=== PATIENT | female | born 1980 | race Caucasian/White ===

== ENCOUNTER 2020-07-10 15:13 | Emergency (ER) | payer MEDICARE ==
[~2020-07-10] VITALS: Ht 157.5 cm; Wt 99.5 kg
[2020-07-10] MEDS ORDERED: ALPRAZolam 0.25 MG TABLET PO ONE (16:45)
[2020-07-10 17:13] VITALS: BP 132/65
[2020-07-10] MEDS ORDERED: LORA-254 PO (18:30)
--- NOTE | 2020-07-10 18:30 | PHYS DOC ---
Past History Past Medical History: Bipolar (CAROLINA CARPENTER APRN) Past Surgical History: No Surgical History (CAROLINA CARPENTER APRN) Alcohol Use: None (CAROLINA CARPENTER APRN) Adult General Chief Complaint Chief Complaint: ANXIETY/PANIC ATTACK [facility] HPI Patient is a 39 year old female who presents with with complaints of an acute onset of anxiety and panic attacks, patient states that she takes Latuda for bipolar manic depression, patient states that she occasionally has panic attacks and anxiety, also states she has not had one in some time. Patient states that 1/2 mg of Xanax usually helps her. Patient states she is not sure what triggered this panic attack, stating that its been going on for the last several hours prior to arrival. Patient denies any other symptoms, pains, or discomforts. Patient denies any COVID-19 virus symptoms and does not wish to be tested for the COVID-19 virus today. (CAROLINA CARPENTER APRN) Review of Systems Review of Systems Constitutional: Denies fever or chills Eyes: Denies change in visual acuity, redness, or eye pain HENT: Denies nasal congestion or sore throat Respiratory: Denies cough or shortness of breath Cardiovascular: No additional information not addressed in HPI GI: Denies abdominal pain, nausea, vomiting, bloody stools or diarrhea : Denies dysuria or hematuria Musculoskeletal: Denies back pain or joint pain Integument: Denies rash or skin lesions Neurologic: Denies headache, focal weakness or sensory change Psychiatric: Patient complains of an acute onset of anxiety and panic attack, denies homicidal or suicidal ideation. All other systems were reviewed and found to be within normal limits, except as documented in this note. (CAROLINA CARPENTER APRN) Current Medications Current Medications Patient states she takes Latuda for bipolar manic depression. Current Medications Medications (Trade) Dose Ordered Sig/Aditya Start Time Stop Time Status Last Admin Dose Admin Alprazolam (Xanax) 0.5 mg 1X ONCE 07/10/20 16:45 07/10/20 16:46 DC 07/10/20 17:10 0.5 MG (CAROLINA CARPENTER APRN) Allergies Allergies Allergies Coded Allergies Type Severity Reaction Last Updated Verified Penicillins Allergy Unknown 07/10/20 Yes (CAROLINA CARPENTER APRN) Physical Exam Physical Exam Constitutional: Well developed, well nourished, patient rocking back and forth in chair during examination, non-toxic appearance. Patient is legally deaf, signed manager web offered, patient stated she would rather just right down her complaints and use pen and paper to converse. HENT: Normocephalic, atraumatic, bilateral external ears normal, oropharynx moist, no oral exudates, nose normal. Eyes: PERRLA, EOMI, conjunctiva normal, no discharge. Neck: Normal range of motion, no tenderness, supple, no stridor. Cardiovascular:Heart rate regular rhythm, no murmur Lungs & Thorax: Bilateral breath sounds clear to auscultation Abdomen: Bowel sounds normal, soft, no tenderness, no masses, no pulsatile masses. Skin: Warm, dry, no erythema, no rash. Back: No tenderness, no CVA tenderness. Extremities: No tenderness, no cyanosis, no clubbing, ROM intact, no edema. Neurologic: Alert and oriented X 3, normal motor function, normal sensory function, no focal deficits noted. Psychologic: Affect up patient presents anxious, judgement normal, mood normal. Patient is cooperative, no panic attack appreciated. (CAROLINA CARPENTER APRN) Current Patient Data Vital Signs Vital Signs Date Time Temp Pulse Resp B/P (MAP) Pulse Ox O2 Delivery O2 Flow Rate FiO2 07/10/20 17:13 96 18 132/65 (87) 96 Room Air 07/10/20 15:34 98.4 (CAROLINA CARPENTER APRN) EKG EKG [] (CAROLINA CARPENTER APRN) Radiology/Procedures Radiology/Procedures [] (CAROLINA CARPENTER APRN) Heart Score Risk Factors: Risk Factors: DM, Current or recent (<one month) smoker, HTN, HLP, family history of CAD, obesity. Risk Scores: Risk Factors: DM, Current or recent (<one month) smoker, HTN, HLP, family history of CAD, obesity. (CAROLINA CARPENTER APRN) Course & Med Decision Making Course & Med Decision Making Pertinent Labs and Imaging studies reviewed. (See chart for details) 39-year-old female presents emergency department complaining of an acute panic attack, patient states that she takes Latuda for bipolar manic depression, patient states that she does not know what triggered this attack and has not had one in some time. Patient is legally deaf, patient preferred to not use a sign manager web and wished to use pen and paper to converse for examination. Patient's presentation was mild for panic and anxiety, patient did not have a rapid heart rate, patient did not have tachypnea, patient did not complain of chest pain or shortness of breath. Patient was however rocking back and forth in her chair during examination, and making incomprehensible noises. Patient was given 1/2 mg of Xanax p.o., approximately 45 minutes after this medication was given patient's reexamination showed patient improvement, patient was calm and cooperative, no longer exhibiting signs of panic or anxiety. Advised patient that I would not prescribe Xanax at home, patient states that she does have a appointment to see her psychiatrist on Thursday, patient will be given five 1 mg Ativan's for acute panic attacks discussed with patient this should last her until she sees her psychiatrist this coming Thursday. Patient gave verbal understanding of findings, discharge home instructions, prescription instructions, patient had no further questions or concerns, patient discharged home without incident. Patient's diagnosis of acute panic attack versus anxiety. (CAROLINA CARPENTER APRN) Dragon Disclaimer Dragon Disclaimer This electronic medical record was generated, in whole or in part, using a voice recognition dictation system. (CAROLINA CARPENTER APRN) Attending Co-Sign The patient was seen and interviewed as well as examined at the bedside. The chart was reviewed. The case was discussed. Agree with the plan of care. (BASIM QUINTERO DO) Departure Departure: Impression: Primary Impression: Anxiety attack Additional Impression: Bipolar affective disorder Disposition: 01 DC HOME SELF CARE/HOMELESS Condition: IMPROVED Referrals: CAROLINA CARPENTER APRN (PCP) Patient Instructions: Anxiety and Panic Attacks Additional Instructions: Take medications as prescribed, keep your appointment with your doctor this Thursday, return to the emergency department for worsening symptoms, or other concerns. Scripts Lorazepam (ATIVAN) 1 Mg Tablet 1 MG PO BID for ANXIETY ATTACK, #5 TAB Prov: CAROLINA CARPENTER APRN 07/10/20 Problem Qualifiers Additional Impression: Bipolar affective disorder Active/Remission status: currently active Current bipolar episode type: mixed Current episode severity: moderate Qualified Codes: F31.62 - Bipolar disorder, current episode mixed, moderate CAROLINA CARPENTER APRN Jul 10, 2020 18:30 BASIM QUINTERO DO Jul 11, 2020 05:46
== END 2020-07-10 18:43 | disposition home or self-care (01) ==
LOC: ER 15:13
DX: F31.62 Bipolar disorder, current episode mixed, moderate (principal); F41.9 Anxiety disorder, unspecified
CPT/HCPCS: 99283

== ENCOUNTER 2020-07-20 18:35 | Emergency (ER) | payer MEDICARE, MEDICAID ==
[~2020-07-20] VITALS: Ht 157.5 cm; Wt 103.0 kg
[~2020-07-20 18:35] MED LIST: LORA-254 PO
[2020-07-20 19:05] VITALS: BP 124/89
[2020-07-20] MEDS ORDERED: clonazePAM 1 MG TABLET PO PRN (19:30)
[2020-07-20] MEDS ORDERED: DIPH50CA PO (19:33)
[2020-07-20] MEDS ORDERED: CLON1TAB PO (19:33)
--- NOTE | 2020-07-20 19:33 | PHYS DOC ---
Past History Past Medical History: Bipolar Past Surgical History: No Surgical History Alcohol Use: None General Adult EDM: Chief Complaint: MANIC BEHAVIOR HPI: HPI: Patient is a 39-year-old female coming in for anxiety and panic symptoms. Has a history bipolar disorder is taking Latuda and has been for a long time. Was given Ativan recently but she states is making her anxiety worse. Patient has had numerous stressors recently. She states that the Ativan works for a little bit but then makes her anxiety come back worse. Has an appoint with her psychiatrist but cannot go for another 10 days. Has not been sleeping. Review of Systems: Review of Systems: Constitutional: Denies fever or chills Eyes: Denies change in visual acuity HENT: Denies nasal congestion or sore throat Respiratory: Denies cough or shortness of breath Cardiovascular: Denies chest pain or edema GI: Denies abdominal pain, nausea, vomiting, bloody stools or diarrhea : Denies dysuria Musculoskeletal: Denies back pain or joint pain Integument: Denies rash Neurologic: Denies headache, focal weakness or sensory changes Endocrine: Denies polyuria or polydipsia Lymphatic: Denies swollen glands Psychiatric: Anxiety difficulties with sleep Allergies: Allergies: Allergies Coded Allergies Type Severity Reaction Last Updated Verified Penicillins Allergy Unknown 07/20/20 Yes Physical Exam: PE: Constitutional: Well developed, well nourished, no acute distress, non-toxic appearance. [] HENT: Normocephalic, atraumatic, bilateral external ears normal, oropharynx moist, no oral exudates, nose normal. [] Eyes: PERRLA, EOMI, conjunctiva normal, no discharge. [] Neck: Normal range of motion, no tenderness, supple, no stridor. [] Cardiovascular:Heart rate regular rhythm, no murmur [] Lungs & Thorax: Bilateral breath sounds clear to auscultation [] Abdomen: Bowel sounds normal, soft, no tenderness, no masses, no pulsatile masses. [] Skin: Warm, dry, no erythema, no rash. [] Back: No tenderness, no CVA tenderness. [] Extremities: No tenderness, no cyanosis, no clubbing, ROM intact, no edema. [] Neurologic: Alert and oriented X 3, normal motor function, normal sensory function, no focal deficits noted. [] Psychologic: Affect normal, judgement normal, mood normal. [] EKG: EKG: [] Radiology/Procedures: Radiology/Procedures: [] Heart Score: Risk Factors: Risk Factors: DM, Current or recent (<one month) smoker, HTN, HLP, family history of CAD, obesity. Risk Scores: Score 0 - 3: 2.5% MACE over next 6 weeks - Discharge Home Score 4 - 6: 20.3% MACE over next 6 weeks - Admit for Clinical Observation Score 7 - 10: 72.7% MACE over next 6 weeks - Early Invasive Strategies Course & Med Decision Making: Course & Med Decision Making Discussed with patient and spouse will change to a longer acting benzo diazepam and that she can use Benadryl for sleep. [] Dragon Disclaimer: Dragon Disclaimer: This electronic medical record was generated, in whole or in part, using a voice recognition dictation system. Departure Departure: Impression: Primary Impression: Anxiety Disposition: 01 DC HOME SELF CARE/HOMELESS Condition: STABLE Referrals: FRANCIA VARELA (PCP) Patient Instructions: Anxiety and Panic Attacks, [id number] Scripts Diphenhydramine Hcl (DIPHENHYDRAMINE HCL) 50 Mg Capsule 1 CAP PO QHS for sleep for 30 Days, #30 CAP 1 Refill Prov: ALEXX BOWER MD 07/20/20 Clonazepam (KLONOPIN) 1 Mg Tablet 1 TAB PO TID PRN for ANXIETY / AGITATION for 14 Days, #42 TAB 1 Refill Prov: ALEXX BOWER MD 07/20/20 ALEXX BOWER MD Jul 20, 2020 19:33
[2020-07-20] MEDS ORDERED: clonazePAM 1 MG TABLET ONE (19:37)
== END 2020-07-20 19:48 | disposition home or self-care (01) ==
LOC: ER 18:35
DX: F41.9 Anxiety disorder, unspecified (principal); F31.9 Bipolar disorder, unspecified; Z88.0 Allergy status to penicillin
CPT/HCPCS: 99283

== ENCOUNTER 2021-07-20 13:06 | Emergency (ER) | payer MEDICARE, MEDICAID ==
[~2021-07-20] VITALS: Ht 157.5 cm; Wt 103.0 kg
[~2021-07-20 13:06] MED LIST changes: +CLON1TAB PO; +DIPH50CA16 PO
--- NOTE | 2021-07-20 13:24 | PHYS DOC ---
Past History Past Medical History: Bipolar Past Surgical History: Other Additional Past Surgical Histo: cochlear implant Alcohol Use: None General Adult EDM: Chief Complaint: ASTHMA HPI: HPI: Patient is a 40-year-old female who presents to the emergency department for an acute asthma exacerbation that started 2 days ago. Patient reports that she became increasingly short of breath like her asthma was worsening when the weather changed. Patient reports that she does not have any inhalers at home. No treatment prior to arrival. Patient is vaccinated for COVID-19. Her vital signs are stable. She is in no acute distress. She denies chest pain, cough, fever, nausea, vomiting. Review of Systems: Review of Systems: Constitutional: See HPI Respiratory: See HPI Cardiovascular: See HPI GI: See HPI Allergies: Allergies: Allergies Coded Allergies Type Severity Reaction Last Updated Verified Penicillins Allergy Unknown 07/20/20 Yes Physical Exam: PE: Constitutional: Well developed, well nourished, no acute distress, non-toxic appearance. [] HENT: Normocephalic, atraumatic, bilateral external ears normal, deaf, oropharynx moist, no oral exudates, nose normal. [] Eyes: PERRL, EOMI, conjunctiva normal, no discharge. [] Neck: Normal range of motion, no tenderness, supple, no stridor. [] Cardiovascular:Heart rate regular rhythm, no murmur [] Lungs & Thorax: Bilateral breath sounds clear to auscultation [] Abdomen: Soft and flat Skin: Warm, dry, no erythema, no rash. [] Back: Normal range of motion Extremities: No tenderness, no cyanosis, no clubbing, ROM intact, no edema. [] Neurologic: Alert and oriented X 3, normal motor function, normal sensory function, no focal deficits noted. [] Psychologic: Affect normal, judgement normal, mood normal. [] EKG: EKG: [] Radiology/Procedures: Radiology/Procedures: []PROCEDURE: PORTABLE CHEST 1V EXAM: Chest, single view. HISTORY: Shortness of air. COMPARISON: None. FINDINGS: A frontal view of the chest is obtained. There is no infiltrate, pleural effusion or pneumothorax. The heart is normal in size. IMPRESSION: No acute pulmonary finding. Electronically signed by: Priyanka Ma MD (07/20/2021 1:49 PM) [id number] DICTATED AND SIGNED BY: PRIYANKA MA MD DATE: 07/20/21 1348 CC: BRIAN SPRING DATA CONSULTANT; FRANCIA VARELA ~MTH0 0 Heart Score: C/O Chest Pain: No Risk Factors: Risk Factors: DM, Current or recent (<one month) smoker, HTN, HLP, family history of CAD, obesity. Risk Scores: Score 0 - 3: 2.5% MACE over next 6 weeks - Discharge Home Score 4 - 6: 20.3% MACE over next 6 weeks - Admit for Clinical Observation Score 7 - 10: 72.7% MACE over next 6 weeks - Early Invasive Strategies Course & Med Decision Making: Course & Med Decision Making Pertinent Labs and Imaging studies reviewed. (See chart for details) [] Patient presents to the emergency department for an acute asthma exacerbation. Patient is in no acute distress, nonlabored breathing and her vital signs are stable. Patient received a chest x-ray in the emergency department that showed no acute findings. She was treated with a DuoNeb brendan atment in the emergency department. She was offered steroids but refused stating that it triggers her bipolar. Patient reports improvement in her symptoms following the breathing treatment. Patient be discharged home with albuterol inhaler and advised to follow-up with her primary care provider. Zeke Disclaimer: Zeke Disclaimer: This electronic medical record was generated, in whole or in part, using a voice recognition dictation system. Departure Departure: Impression: Primary Impression: Asthma exacerbation Qualified Codes: J45.901 - Unspecified asthma with (acute) exacerbation Disposition: HOME / SELF CARE / HOMELESS Condition: GOOD Referrals: FRANCIA VARELA (PCP) Patient Instructions: Asthma Prevention-Brief, Asthma, Adult Additional Instructions: You were seen in the emergency department for an asthma exacerbation. Your chest x-ray showed no acute findings. You received a breathing treatment in the emergency departmen. You're being discharged home with an albuterol inhaler, please use this as directed. You are offered prednisone but stated that you couldn't take it because it triggers her bipolar disorder. Please follow-up with your primary care provider on Thursday regarding your emergency department visit. Please return to the emergency department if you develop worsening of your shortness of breath, chest pain, high fevers refractory to treatment, intractable nausea or vomiting. Scripts Albuterol Sulfate (PROAIR HFA INHALER) 8.5 Gm Hfa.aer.ad 2 PUFF IH PRN Q4-6HRS PRN for wheezing for 21 Days, #1 INHALER 0 Refills as needed for wheezing Prov: BRIAN SPRING APRN 07/20/21 BRIAN SPRING APRN Jul 20, 2021 13:24
[2021-07-20] MEDS ORDERED: predniSONE 20 MG TABLET PO ONE (13:30)
[2021-07-20] MEDS ORDERED: IPRATRPIUM/ALBUTEROL 0.5/2.5MG 3 ML NEBU. NEB ONE (13:30)
--- NOTE | 2021-07-20 13:51 | RAD ---
EXAM: Chest, single view. HISTORY: Shortness of air. COMPARISON: None. FINDINGS: A frontal view of the chest is obtained. There is no infiltrate, pleural effusion or pneumo thorax. The heart is normal in size. IMPRESSION: No acute pulmonary finding. Electronically signed by: Priyanka Ma MD (07/20/2021 1:49 PM) [id number]
[2021-07-20] MEDS ORDERED: ALBU2.5V8 IH (14:06)
[2021-07-20 14:25] VITALS: BP 131/72
== END 2021-07-20 14:30 | disposition home or self-care (01) ==
LOC: ER 13:06
DX: J45.901 Unspecified asthma with (acute) exacerbation (principal); Z88.0 Allergy status to penicillin
CPT/HCPCS: 71045; 81025; 94640; 99283-25

== ENCOUNTER 2022-01-15 02:57 | Emergency (ER) | payer MEDICARE, MEDICAID ==
[~2022-01-15] VITALS: Ht 157.5 cm; Wt 100.2 kg
[~2022-01-15 02:57] MED LIST changes: +ALBU2.5V8 IH
--- NOTE | 2022-01-15 03:34 | PHYS DOC ---
Past History Past Medical History: Bipolar Additional Past Medical Histor: hearing impaired Past Surgical History: No Surgical History Additional Past Surgical Histo: cochlear implant Smoking: Cigarettes, Quit Less Than 1 Year Alcohol Use: None General Adult EDM: Chief Complaint: SORE THROAT HPI: HPI: "-( Sign Language with Boy Friend)" " Coughing, now sore throat" Patient is a 41 year old female who presents with above hx and complaints recent complaints of fever and cough. Patient tonight developed a very sore throat. Patient patient had a history of frequent upper respiratory infections and bronchitis. Patient recently quit smoking in November. Patient denies any recent travel or specific ill contacts. Has had COVID vaccination x4. Has had flu vaccination in May. No history of immunosuppression. Patient did try a drink of hot tea and honey with no relief of her pain. Patient also did take ibuprofen at midnight with no relief of her pain or cough. Patient declines any meds with narcotics and because she has to do a urine test in the morning. Patient does have a pt. follow up with Dr. Rosado in the morning. Patient has hearing deficits but has a right-sided cochlear implant. Patient gives an allergy to penicillin. Review of Systems: Review of Systems: Constitutional: Subjective complaints of fever Eyes: Denies change in visual acuity HENT: Complains of severe sore throat Respiratory: Complains of a nonproductive cough Cardiovascular: Denies chest pain or edema GI: Denies abdominal pain, nausea, vomiting, bloody stools or diarrhea : Denies dysuria Musculoskeletal: Denies back pain or joint pain Integument: Denies rash Neurologic: Denies headache, focal weakness or sensory changes Endocrine: Denies polyuria or polydipsia Lymphatic: Denies swollen glands Psychiatric: Denies depression or anxiety Family History: Family History: Noncontributory to presentation Current Medications: Current Meds: See nursing for home meds Allergies: Allergies: Allergies Coded Allergies Type Severity Reaction Last Updated Verified Penicillins Allergy Unknown 07/20/20 Yes Physical Exam: PE: Constitutional: Reports acute distress, non-toxic appearance. [] HENT: Normocephalic, atraumatic, bilateral external ears normal, oropharynx moist, injected pharynx with postnasal drip, no oral exudates, nose swollen turbinates clear rhinorrhea.. Scar right side of head. TM on right slightly injected. Eyes: PERRLA, EOMI, conjunctiva normal, no discharge. [] Neck: Normal range of motion, no tenderness, supple, no stridor. [] Cardiovascular:Heart tachycardia rate regular rhythm, no murmur [] Lungs & Thorax: Bilateral breath sounds equal apex with scattered wheezes on auscultation [] Abdomen: Bowel sounds normal, soft, no tenderness, no masses, no pulsatile masses. Obese Skin: Warm, dry, no erythema, no rash. Tattoos Back: No tenderness, no CVA tenderness. [] Extremities: No tenderness, no cyanosis, no clubbing, ROM intact, no edema. No cording appreciated Neurologic: Alert and oriented X 3, moves all extremities on request, does have deafness,, no new focal deficits noted. [] Psychologic: Affect anxious , judgement normal, mood normal. [] Current Patient Data: Vital Signs: Vital Signs Date Time Temp Pulse Resp B/P (MAP) Pulse Ox O2 Delivery O2 Flow Rate FiO2 01/15/22 03:23 98.1 16 113/84 (94) 100 EKG: EKG: [] Radiology/Procedures: Radiology/Procedures: [] Heart Score: C/O Chest Pain: No Risk Factors: Risk Factors: DM, Current or recent (<one month) smoker, HTN, HLP, family history of CAD, obesity. Risk Scores: Score 0 - 3: 2.5% MACE over next 6 weeks - Discharge Home Score 4 - 6: 20.3% MACE over next 6 weeks - Admit for Clinical Observation Score 7 - 10: 72.7% MACE over next 6 weeks - Early Invasive Strategies Course & Med Decision Making: Course & Med Decision Making Pertinent Labs and Imaging studies reviewed. (See chart for details) Patient gargle with Listerine at least 4 times a day and as needed. Take Tylenol and ibuprofen for discomfort. Benadryl liquid 25 to 50 mg up to 4 times a day may be helpful for sore throat. Patient use MDI 2 puffs 4 times a day. Patient keep follow-up appointment with Dr. Rosado. Impression: 1. Pharyngitis 2. Bronchitis 3. Deafness/ hearing impaired [] Zeke Disclaimer: Zeke Disclaimer: This electronic medical record was generated, in whole or in part, using a voice recognition dictation system. Departure Departure: Referrals: ONEL ROSADO (PCP) Zeke Disclaimer This chart was dictated in whole or in part using Voice Recognition software in a busy, high-work load, and often noisy Emergency Department environment. It may contain unintended and wholly unrecognized errors or omissions. Hermilaon Disclaimer This chart was dictated in whole or in part using Voice Recognition software in a busy, high-work load, and often noisy Emergency Department environment. It may contain unintended and wholly unrecognized errors or omissions. HI CHONG MD January 15, 2022 03:34
[2022-01-15] MEDS ORDERED: oxyCODONE/APAP 5/325 1 TAB TABLET PO ONE (03:45)
[2022-01-15] MEDS ORDERED: predniSONE 10 MG TABLET. PO ONE (04:00)
[2022-01-15] MEDS ORDERED: ACETAMINOPHEN 500 MG TABLET PO ONE (04:00)
[2022-01-15] MEDS ORDERED: ALBUTEROL SULFATE 8GM INHALER. INH ONE (04:00)
[2022-01-15] MEDS ORDERED: diphenhydrAMINE HCL 25 MG CAPSULE PO ONE (04:00)
[2022-01-15 04:37] LABS: INFLUENZA A PATIENT NEGATIVE (NEGATIVE); INFLUENZA B PATIENT NEGATIVE (NEGATIVE)
[2022-01-15 04:47] VITALS: BP 107/59
== END 2022-01-15 04:48 | disposition home or self-care (01) ==
LOC: ER 02:57
DX: J40 Bronchitis, not specified as acute or chronic (principal); J02.9 Acute pharyngitis, unspecified; F31.9 Bipolar disorder, unspecified; Z20.822 Contact with and (suspected) exposure to COVID-19; Z87.891 Personal history of nicotine dependence; Z88.0 Allergy status to penicillin
CPT/HCPCS: 87070; 87428; 87880; 94640; 99283; Q0163; 94664